=== PATIENT | male | born 1950 | race Caucasian/White ===

== ENCOUNTER 2016-09-22 19:47 | Observation (INO) | payer MEDICARE, OTHER ==
[~2016-09-22] VITALS: Ht 185.4 cm; Wt 116.8 kg
[2016-09-22] MEDS ORDERED: TRAMADOL 50 MG TAB PO PRN (22:20)
[2016-09-22] MEDS ORDERED: ACETAMINOPHEN 325 MG TAB PO PRN (22:20)
[2016-09-22] MEDS ORDERED: TEMAZEPAM 7.5 MG CAP PO PRN (22:20)
[2016-09-22] MEDS ORDERED: DOCUSATE SOD 100 MG CAP PO PRN (22:20)
[2016-09-22] MEDS ORDERED: NITROGLYCERIN SL 0.4 MG TAB SL PRN (22:20)
[2016-09-22] MEDS ORDERED: MORPHINE 2 MG/ML SYR IV PRN (22:20)
[2016-09-22] MEDS ORDERED: SALINE FLUSH 10 ML FLUSH PRN (22:20)
[2016-09-22] MEDS ORDERED: NITROGLYCERIN 50 MG/250 ML IV PRN (22:20)
[2016-09-22] MEDS ORDERED: ONDANSETRON 4 MG VIAL IV PRN (22:20)
[2016-09-22] MEDS ORDERED: SODIUM CHLORIDE 0.9% FLUSH BAG 500 ML IV PRN (22:20)
[2016-09-22] MEDS ORDERED: SODIUM CHLORIDE 0.9% 1,000 ML IV SCH (22:20)
[2016-09-22] MEDS ORDERED: LORAZEPAM 0.5 MG TAB PO PRN (22:20)
[2016-09-23] VITALS (8 sets, daily range): BP systolic 100–110; RESP 16–20; TEMP 97.5–98.4; Ht 185.4 cm; Wt 116.8 kg
[2016-09-23] MEDS ORDERED: DOCUSATE SOD 100 MG CAP PO PRN (01:20)
[2016-09-23] MEDS ORDERED: TRAMADOL 50 MG TAB PO PRN (01:20)
[2016-09-23] MEDS ORDERED: SALINE FLUSH 10 ML FLUSH PRN (01:20)
[2016-09-23] MEDS ORDERED: ALU/MAG/SIM 30 ML UDC PO PRN (01:20)
[2016-09-23] MEDS ORDERED: NITROGLYCERIN SL 0.4 MG TAB SL PRN (01:20)
[2016-09-23] MEDS ORDERED: LORAZEPAM 0.5 MG TAB PO PRN (01:20)
[2016-09-23] MEDS ORDERED: TEMAZEPAM 7.5 MG CAP PO PRN (01:20)
[2016-09-23] MEDS ORDERED: NITROGLYCERIN 50 MG/250 ML 250 ML IV PRN (01:20)
[2016-09-23] MEDS ORDERED: ACETAMINOPHEN 325 MG TAB PO PRN (01:20)
[2016-09-23] MEDS ORDERED: TEMAZEPAM 15 MG CAP PO PRN (01:20)
[2016-09-23] MEDS ORDERED: ONDANSETRON 4 MG VIAL IV PRN (01:20)
[2016-09-23] MEDS ORDERED: MORPHINE 2 MG/ML SYR IV PRN (01:20)
[2016-09-23] MEDS ORDERED: *PINK BRACELET XX ONE (02:05)
[2016-09-23] MEDS ORDERED: SODIUM CHLORIDE 0.9% FLUSH BAG 500 ML IV SCH (06:00)
[2016-09-23] MEDS ORDERED: ASPIRIN EC 81 MG TAB PO SCH (08:00)
[2016-09-23] MEDS ORDERED: SALINE FLUSH 10 ML FLUSH SCH ×2 (08:00)
[2016-09-23] MEDS: [UNRECOGNIZED DRUG - OTHER] XX SCH ×2 (08:00→15:22)
[2016-09-24] MEDS ORDERED: ASPIRIN 81 MG CHEW TAB PO SCH (08:00)
== END 2016-09-23 13:42 | disposition home or self-care (01) ==
LOC: ENRESERVDT → ENRESERVTM → ER 19:47 → EMR 21:48 → ENPENDDIS 21:48 → PCU2 09-23 01:10
PROVIDERS: ADMIT Specialist; ATTEND Specialist
CPT/HCPCS: 36415 ×2; 71010 ×2; 80053 ×2; 80061 ×2; 82550 ×2; 82553 ×2; 82947 ×2; 83735 ×2; 84484 ×2; 85025 ×2; 85610 ×2; 85730 ×2; 93005 ×2; 94799; 97799; 99285; G0378